=== PATIENT | female | born 1990 | race Caucasian/White ===

== ENCOUNTER 2016-06-05 01:59 | Emergency (ER) | payer OTHER ==
--- NOTE | 2016-06-05 03:30 | ED CLINICAL REPORT ---
Clinical Report - Physicians/Mid Levels [facility] [address] [place] [address] 06/05/2016 1:59 Patient: JOSÉ MIGUEL DE LEON Time Seen: 02:10. Arrived- By private vehicle. Historian- patient. HISTORY OF PRESENT ILLNESS Chief Complaint: CHEST PAIN. This started about 2 days ago and is still present. It was abrupt in onset and has been intermittent (episodes lasting seconds to hours). (She reports that after using meth 2 days ago, she felt anxious and had pressure in her chest. She says that she continues to fell anxious and "jittery."). REVIEW OF SYSTEMS No chills, fever, sweats, calf pain or pedal edema. No abdominal pain, constipation, diarrhea, nausea or vomiting. No urinary problems. She has had palpitations. All systems otherwise negative, except as recorded above. PAST HISTORY PCP - Vishal. Problems: Anxiety Reaction. Additional Surgeries: no known surgeries. Medications: None. Allergies: No Known Drug Allergy. SOCIAL HISTORY Current every day light tobacco smoker (cigarette)- less than 1/2 a pack per day. History of drug use: methamphetamines, marijuana. No alcohol use. Is a local resident. FAMILY HISTORY Diabetes in grandparent; heart disease in first-degree relative (mother). ADDITIONAL NOTES The nursing notes have been reviewed. PHYSICAL EXAM Vital Signs: 06/05/2016 02:02 BP: 110/61. HR: 71. RR: 15. O2 saturation: 95%. Temp: 97.4 F. Luna-Esparza pain scale: 2/10. Have been reviewed. Appearance: Alert. Eyes: Pupils equal, round and reactive to light. ENT: Pharynx normal. Neck: Neck supple. CVS: Normal heart rate and rhythm. Heart sounds normal. Respiratory: No respiratory distress. Breath sounds normal. Abdomen: No visible injury. Soft and nontender. Bowel sounds normal. No organomegaly. No mass. Back: Normal inspection. No CVA tenderness. Skin: Skin warm and dry. Normal skin color. Normal skin turgor. Extremities: Extremities exhibit normal ROM. No calf tenderness. No lower extremity edema. LABS, X-RAYS, AND EKG EKG: Normal EKG. Rate: 80. Prior EKG unavailable. The study has been independently viewed by me. Laboratory Tests: Urine: (JOHN: 06/05/2016 02:55) ( MsgRcvd 06/05/2016 03:06) Final results Test Result Flag Units (Reference) URINE POSITIVE Urine Drug Screen: (JOHN: 06/05/2016 02:55) ( MsgRcvd 06/05/2016 03:16) Final results Test Result Flag Units (Reference) AMPHETAMINE/METHAMPHETAMINE POSITIVE H (NEGATIVE) BARBITURATE NEGATIVE (NEGATIVE) BENZODIAZEPINE NEGATIVE (NEGATIVE) CANNABINOID POSITIVE H (NEGATIVE) COCAINE NEGATIVE (NEGATIVE) ECSTASY NEGATIVE (NEGATIVE) METHADONE NEGATIVE (NEGATIVE) OPIATE NEGATIVE (NEGATIVE) The urine drug screen is a qualitative screening test fordrug overdose and abuse. All screen results should beconsidered as presumptive.Drugs screened for are as follows:BenzodiazepinesCocaineAmphetamines/MetamphetaminesTHC (Tetrahydrocannabinol)OpiatesBarbituratesEcstasyMethadonePositive results are unconfirmed. For confirmation, notifythe lab for the specimen to be sent to the reference lab.All confirmations must be performed by a differentmethodology.The ingestion of natural herbal and plant productscontaining Ephedra/Ephedra metabolites can produce in urineone or more substances capable of cross reacting withamphetamine/methamphetamine immunoassays. These testsprovide a preliminary result only. A more specificalternative chemical method must be used to obtain aconfirmed analytical result. . PROGRESS AND PROCEDURES Course of Care: Patient is stable. Patient/family counseled. Old medical records ordered. Old records unavailable. Disposition: Discharged. Condition: stable. CLINICAL IMPRESSION . Substance abuse- marijuana, amphetamines and methamphetamines. INSTRUCTIONS (talk with your primary care doctor about seeking help for substance abuse as discussed.). Warnings: Further evaluation is necessary. GENERAL WARNINGS: Return or contact your physician immediately if your condition worsens or changes unexpectedly, if not improving as expected, or if other problems arise. Prescription Medications: vitamins: Take 1 orally every day. Dispense thirty (30). No refill. Follow-up: Follow up with your doctor JOSEE COBB tomorrow. Call for an appointment. Understanding of the discharge instructions verbalized by patient. Follow-up with: Gama Fraser MD, Obstetrics/Gynecology, , [facility], [address] [place] [address] Follow up in three days. Call for the next available appointment. (Electronically signed by Darryl Harley MD 06/05/2016 21:32)
--- NOTE | 2016-06-05 03:30 | ED ORDER SUMMARY ---
..... Patient: JOSÉ MIGUEL DE LEON OrderSheet [facility] VisitID: [id number] [address] [place] [address] 25y, F Registration Date/Time: 06/05/2016 ORDER SHEET Weight: 52.1 kg (estimated) Allergies: No Known Drug Allergy GENERAL ORDERS: Urine Urgent (02:11 06/05/2016 [facility] Bake Room Worker verbal order read back to Ash CARSON) (2:58 TBowwilmer R.N.) (Ack 2:58 [facility] Bake Room Worker) Urine Drug Screen Urgent (02:11 06/05/2016 [facility] Bake Room Worker verbal order read back to Ash CARSON) (Ack 2:58 [facility] Bake Room Worker) (2:58 TBowen R.N.) EKG - ER Stat (02:11 06/05/2016 [facility] Bake Room Worker verbal order read back to Ash CARSON) (2:25 CHategekimana) MEDICATION ORDERS: IV FLUIDS: ORDER SHEET NOTES: [Electronically signed by Sabrina Toure R.N. (03:46 06/05/2016)] [Electronically signed by Darryl Harley MD (21:32 06/05/2016)] [Electronically locked/signed by Sabrina Toure R.N. (03:46 06/05/2016)]
--- NOTE | 2016-06-05 03:30 | ED NURSING NOTES ---
Clinical Report - Nurses [facility] [address] [place] [address] 06/05/2016 1:59 Patient: JOSÉ MIGUEL DE LEON TRIAGE Triage time 02:02. Acuity: LEVEL 4. Chief Complaint: CHEST PAIN. Alert. --02: Selina Brink R.N. 02:02 06/05/16. BP: 110/61. HR: 71. RR: 15. O2 saturation: 95% on room air. Temp: 97.4 F (oral). Luna-Esparza pain scale: 2/10. --02: Selina Brink R.N. Weight: 52.1 kg estimated. Height/Length: 67 inches Per Patient. BMI: 18. --02: Selina Brink R.N. Medications None. --02: Selina Brink R.N. Allergies No Known Drug Allergy. --02: Selina Brink R.N. History Arrived by private vehicle. Historian: patient. ( pt reports having pain for 2 days. 3 days ago, pt reports 3 days ago she had episode of loosing vision and inability to walk. Family told her she was having a "panic attack" and refused to bring her in at that time.). Onset. (about 2 days ago). PAST MEDICAL HX: Immunizations: status is unknown. Last normal menstrual period was 3 weeks ago. Sexual history - sexually active. No contraception. SOCIAL HX: Heavy tobacco smoker (cigarette)- less than 1 pack per day. History of drug use: methamphetamines, marijuana. No alcohol use. NUTRITIONAL RISK ASSESSMENT: The nutritional risk assessment revealed no deficiencies. FUNCTIONAL ASSESSMENT: Functional assessment: no impairments noted. --02: Selina Brink R.N. PROBLEMS: Anxiety Reaction. --02:06 Selina Brink R.N. ADDITIONAL SURGERIES: no known surgeries. Interventions ID band on patient. To treatment room. --02: Selina Brink R.N. PHYSICAL ASSESSMENT Ambulatory to room. Patient gowned. GENERAL / NEURO / PSYCH: Alert. Oriented X 4. Appears in no acute distress. RESPIRATORY: Respirations not labored. CVS: Capillary refill less than 2 seconds. SKIN: Skin is warm and dry. --02:07 Selina Brink R.N. NURSING PROGRESS NOTES Head of bed elevated. Two patient identifiers checked. Call light placed in reach. Side rails up x 1. Bed placed in lowest position. Brakes of bed on. --02:07 Selina Brink R.N. Patient ready for evaluation- chart flagged. --02:07 Selina Brink R.N. EKG time: (217). EKG was ordered, performed by a tech and shown to the ED physician. --02:25 Peggy Pandey ( 9: electronic device monitor placed on patient.). --02:36 Peggy Pandey. DISPOSITION / DISCHARGE Departure time: 03:45. Condition at departure: improved. No learning barriers present. Discharge instructions provided and reviewed with the patient. Reviewed medication(s) side effects, precautions, dosing and course information. Prescription(s) given to the patient. Reviewed referrals. Reviewed need to stop smoking. Follow up contact number. Smash Fixer verbalized understanding. Written instructions provided in Kittitian. No warning instructions, diet instructions, activity restrictions or note given. The patient was discharged by the physician. She was discharged home and accompanied by financial aid director. She left the Emergency Department ambulatory and via private vehicle. Smash Fixer driving. FALL RISK ASSESSMENT: Fall risk assessment completed. No fall risk identified. --03:45 Deniz Mar 03:43 06/05/16. BP: 125/74. HR: 98. RR: 16. O2 saturation: 99%. Temp: deferred. Pain level now: 0/10. --03:45 Deniz Mar Locked/Released at 06/05/2016 3:46 by Deniz Mar
--- NOTE | 2016-06-05 03:30 | ED NURSING NOTES ---
Clinical Report - Nurses [facility] [address] [place] [address] 06/05/2016 1:59 Patient: JOSÉ MIGUEL DE LEON TRIAGE Triage time 02:02. Acuity: LEVEL 4. Chief Complaint: CHEST PAIN. Alert. --02: Selina Brink R.N. 02:02 06/05/16. BP: 110/61. HR: 71. RR: 15. O2 saturation: 95% on room air. Temp: 97.4 F (oral). Luna-Esparza pain scale: 2/10. --02: Selina Brink R.N. Weight: 52.1 kg estimated. Height/Length: 67 inches Per Patient. BMI: 18. --02: Selina Brink R.N. Medications None. --02: Selina Brink R.N. Allergies No Known Drug Allergy. --02: Selina Brink R.N. History Arrived by private vehicle. Historian: patient. ( pt reports having pain for 2 days. 3 days ago, pt reports 3 days ago she had episode of loosing vision and inability to walk. Family told her she was having a "panic attack" and refused to bring her in at that time.). Onset. (about 2 days ago). PAST MEDICAL HX: Immunizations: status is unknown. Last normal menstrual period was 3 weeks ago. Sexual history - sexually active. No contraception. SOCIAL HX: Heavy tobacco smoker (cigarette)- less than 1 pack per day. History of drug use: methamphetamines, marijuana. No alcohol use. NUTRITIONAL RISK ASSESSMENT: The nutritional risk assessment revealed no deficiencies. FUNCTIONAL ASSESSMENT: Functional assessment: no impairments noted. --02: Selina Brink R.N. PROBLEMS: Anxiety Reaction. --02:06 Selina Brink R.N. ADDITIONAL SURGERIES: no known surgeries. Interventions ID band on patient. To treatment room. --02: Selina Brink R.N. PHYSICAL ASSESSMENT Ambulatory to room. Patient gowned. GENERAL / NEURO / PSYCH: Alert. Oriented X 4. Appears in no acute distress. RESPIRATORY: Respirations not labored. CVS: Capillary refill less than 2 seconds. SKIN: Skin is warm and dry. --02:07 Selina Brink R.N. NURSING PROGRESS NOTES Head of bed elevated. Two patient identifiers checked. Call light placed in reach. Side rails up x 1. Bed placed in lowest position. Brakes of bed on. --02:07 Selina Brink R.N. Patient ready for evaluation- chart flagged. --02:07 Selina Brink R.N. EKG time: (217). EKG was ordered, performed by a tech and shown to the ED physician. --02:25 Peggy Pandey ( 9: bus monitor placed on patient.). --02:36 Peggy Pandey. DISPOSITION / DISCHARGE Departure time: 03:45. Condition at departure: improved. No learning barriers present. Discharge instructions provided and reviewed with the patient. Reviewed medication(s) side effects, precautions, dosing and course information. Prescription(s) given to the patient. Reviewed referrals. Reviewed need to stop smoking. Follow up contact number. Funeral Service Manager verbalized understanding. Written instructions provided in Russian. No warning instructions, diet instructions, activity restrictions or note given. The patient was discharged by the physician. She was discharged home and accompanied by system administrator. She left the Emergency Department ambulatory and via private vehicle. Funeral Service Manager driving. FALL RISK ASSESSMENT: Fall risk assessment completed. No fall risk identified. --03:45 Deniz Mar 03:43 06/05/16. BP: 125/74. HR: 98. RR: 16. O2 saturation: 99%. Temp: deferred. Pain level now: 0/10. --03:45 Deniz Mar Locked/Released at 06/05/2016 3:46 by Deniz Mar
--- NOTE | 2016-06-05 03:30 | ED CLINICAL REPORT ---
Clinical Report - Physicians/Mid Levels [facility] [address] [place] [address] 06/05/2016 1:59 Patient: JOSÉ MIGUEL DE LEON Time Seen: 02:10. Arrived- By private vehicle. Historian- patient. HISTORY OF PRESENT ILLNESS Chief Complaint: CHEST PAIN. This started about 2 days ago and is still present. It was abrupt in onset and has been intermittent (episodes lasting seconds to hours). (She reports that after using meth 2 days ago, she felt anxious and had pressure in her chest. She says that she continues to fell anxious and "jittery."). REVIEW OF SYSTEMS No chills, fever, sweats, calf pain or pedal edema. No abdominal pain, constipation, diarrhea, nausea or vomiting. No urinary problems. She has had palpitations. All systems otherwise negative, except as recorded above. PAST HISTORY PCP - Vishal. Problems: Anxiety Reaction. Additional Surgeries: no known surgeries. Medications: None. Allergies: No Known Drug Allergy. SOCIAL HISTORY Current every day light tobacco smoker (cigarette)- less than 1/2 a pack per day. History of drug use: methamphetamines, marijuana. No alcohol use. Is a local resident. FAMILY HISTORY Diabetes in grandparent; heart disease in first-degree relative (mother). ADDITIONAL NOTES The nursing notes have been reviewed. PHYSICAL EXAM Vital Signs: 06/05/2016 02:02 BP: 110/61. HR: 71. RR: 15. O2 saturation: 95%. Temp: 97.4 F. Luna-Esparza pain scale: 2/10. Have been reviewed. Appearance: Alert. Eyes: Pupils equal, round and reactive to light. ENT: Pharynx normal. Neck: Neck supple. CVS: Normal heart rate and rhythm. Heart sounds normal. Respiratory: No respiratory distress. Breath sounds normal. Abdomen: No visible injury. Soft and nontender. Bowel sounds normal. No organomegaly. No mass. Back: Normal inspection. No CVA tenderness. Skin: Skin warm and dry. Normal skin color. Normal skin turgor. Extremities: Extremities exhibit normal ROM. No calf tenderness. No lower extremity edema. LABS, X-RAYS, AND EKG EKG: Normal EKG. Rate: 80. Prior EKG unavailable. The study has been independently viewed by me. Laboratory Tests: Urine: (JOHN: 06/05/2016 02:55) ( MsgRcvd 06/05/2016 03:06) Final results Test Result Flag Units (Reference) URINE POSITIVE Urine Drug Screen: (JOHN: 06/05/2016 02:55) ( MsgRcvd 06/05/2016 03:16) Final results Test Result Flag Units (Reference) AMPHETAMINE/METHAMPHETAMINE POSITIVE H (NEGATIVE) BARBITURATE NEGATIVE (NEGATIVE) BENZODIAZEPINE NEGATIVE (NEGATIVE) CANNABINOID POSITIVE H (NEGATIVE) COCAINE NEGATIVE (NEGATIVE) ECSTASY NEGATIVE (NEGATIVE) METHADONE NEGATIVE (NEGATIVE) OPIATE NEGATIVE (NEGATIVE) The urine drug screen is a qualitative screening test fordrug overdose and abuse. All screen results should beconsidered as presumptive.Drugs screened for are as follows:BenzodiazepinesCocaineAmphetamines/MetamphetaminesTHC (Tetrahydrocannabinol)OpiatesBarbituratesEcstasyMethadonePositive results are unconfirmed. For confirmation, notifythe lab for the specimen to be sent to the reference lab.All confirmations must be performed by a differentmethodology.The ingestion of natural herbal and plant productscontaining Ephedra/Ephedra metabolites can produce in urineone or more substances capable of cross reacting withamphetamine/methamphetamine immunoassays. These testsprovide a preliminary result only. A more specificalternative chemical method must be used to obtain aconfirmed analytical result. . PROGRESS AND PROCEDURES Course of Care: Patient is stable. Patient/family counseled. Old medical records ordered. Old records unavailable. Disposition: Discharged. Condition: stable. CLINICAL IMPRESSION . Substance abuse- marijuana, amphetamines and methamphetamines. INSTRUCTIONS (talk with your primary care doctor about seeking help for substance abuse as discussed.). Warnings: Further evaluation is necessary. GENERAL WARNINGS: Return or contact your physician immediately if your condition worsens or changes unexpectedly, if not improving as expected, or if other problems arise. Prescription Medications: vitamins: Take 1 orally every day. Dispense thirty (30). No refill. Follow-up: Follow up with your doctor JOSEE COBB tomorrow. Call for an appointment. Understanding of the discharge instructions verbalized by patient. Follow-up with: Gama Fraser MD, Obstetrics/Gynecology, , [facility], [address] [place] [address] Follow up in three days. Call for the next available appointment. (Electronically signed by Darryl Harley MD 06/05/2016 21:32)
--- NOTE | 2016-06-05 03:30 | ED ORDER SUMMARY ---
..... Patient: JOSÉ MIGUEL DE LEON OrderSheet [facility] VisitID: [id number] [address] [place] [address] 25y, F Registration Date/Time: 06/05/2016 ORDER SHEET Weight: 52.1 kg (estimated) Allergies: No Known Drug Allergy GENERAL ORDERS: Urine Urgent (02:11 06/05/2016 [facility] Prototype Deicer Assembler verbal order read back to Ash CARSON) (2:58 TBowwilmer R.N.) (Ack 2:58 [facility] Prototype Deicer Assembler) Urine Drug Screen Urgent (02:11 06/05/2016 [facility] Prototype Deicer Assembler verbal order read back to Ash CARSON) (Ack 2:58 [facility] Prototype Deicer Assembler) (2:58 TBowen R.N.) EKG - ER Stat (02:11 06/05/2016 [facility] Prototype Deicer Assembler verbal order read back to Ash CARSON) (2:25 CHategekimana) MEDICATION ORDERS: IV FLUIDS: ORDER SHEET NOTES: [Electronically signed by Sabrina Toure R.N. (03:46 06/05/2016)] [Electronically signed by Darryl Harley MD (21:32 06/05/2016)] [Electronically locked/signed by Sabrina Toure R.N. (03:46 06/05/2016)]
--- NOTE | 2016-06-05 21:32 | ED DISCHARGE INSTRUCTIONS ---
Patient: JOSÉ MIGUEL DE LEON General Instructions [facility] VisitID: [id number] [place] [address] 25y, F Registration Date/Time: 06/05/2016 . Substance abuse- marijuana, amphetamines and methamphetamines. INSTRUCTIONS (talk with your primary care doctor about seeking help for substance abuse as discussed.). Warnings: Further evaluation is necessary. GENERAL WARNINGS: Return or contact your physician immediately if your condition worsens or changes unexpectedly, if not improving as expected, or if other problems arise. Prescription Medications: vitamins: Take 1 orally every day. Dispense thirty (30). No refill. Follow-up: Follow up with your doctor JOSEE COBB tomorrow. Call for an appointment. Understanding of the discharge instructions verbalized by patient. Follow-up with: Gama Fraser MD, Obstetrics/Gynecology, , [facility], [address] [place] [address] Follow up in three days. Call for the next available appointment. ADDITIONAL INFORMATION Your exam today shows that you are . During , it is normal to develop tender swollen breasts, frequent urination and mild vaginal discharge. During the first three months, nausea is common. Guidelines For A Healthy : To ensure that your baby is born healthy there are certain things that you can do: When you feel tired, you should REST. This is especially true in the later months of . Your body needs more FLUIDS than you may be used to: You should drink 8-10 glasses of juice, milk or water. Eat well-balanced MEALS at regular intervals to supply your body with enough protein. You can expect a total weight gain of about 30 pounds during the . Do not try to diet or lose weight while you are . Because of the extra nutritional needs during , take one VITAMIN daily. Do not take any other MEDICINE during your (prescribed or jbcd-[id number]-[id number]) unless your doctor specifically recommends this. Many drugs can have harmful effects on the growing baby. If NAUSEA or VOMITING become a problem, avoid greasy and fried foods. Eat several smaller meals throughout the day rather than three large meals. If you SMOKE, you must stop. The nicotine you breathe in goes right to the baby. Stay away from ALCOHOL, even in moderate amounts. Daily drinking will harm your baby and can cause permanent brain damage. RECREATIONAL DRUGS are harmful, especially cocaine, crack, and heroin. Marijuana should also be avoided. If you were using recreational drugs or prescribed medicine when you found out that you were , talk to your doctor about possible effects on the fetus. Follow Up: Call to arrange for care. This can be provided by your family doctor, an national business director ( specialist) or a primary care clinic. Get Prompt Medical Attention if any of the following occur: Vaginal bleeding Moderate or severe abdominal or back pain Excessive vomiting, unable to keep any fluids down for six hours Burning with urination Headache, dizziness or rapid weight gain Your exam today shows that you are . During , it is normal to develop tender swollen breasts, frequent urination and mild vaginal discharge. During the first three months, nausea is common. Guidelines For A Healthy : To ensure that your baby is born healthy there are certain things that you can do: When you feel tired, you should REST. This is especially true in the later months of . Your body needs more FLUIDS than you may be used to: You should drink 8-10 glasses of juice, milk or water. Eat well-balanced MEALS at regular intervals to supply your body with enough protein. You can expect a total weight gain of about 30 pounds during the . Do not try to diet or lose weight while you are . Because of the extra nutritional needs during , take one VITAMIN daily. Do not take any other MEDICINE during your (prescribed or iluv-ylv-riecjid) unless your doctor specifically recommends this. Many drugs can have harmful effects on the growing baby. If NAUSEA or VOMITING become a problem, avoid greasy and fried foods. Eat several smaller meals throughout the day rather than three large meals. If you SMOKE, you must stop. The nicotine you breathe in goes right to the baby. Stay away from ALCOHOL, even in moderate amounts. Daily drinking will harm your baby and can cause permanent brain damage. RECREATIONAL DRUGS are harmful, especially cocaine, crack, and heroin. Marijuana should also be avoided. If you were using recreational drugs or prescribed medicine when you found out that you were , talk to your doctor about possible effects on the fetus. Follow Up: Call to arrange for care. This can be provided by your family doctor, an national business director ( specialist) or a primary care clinic. Get Prompt Medical Attention if any of the following occur: Vaginal bleeding Moderate or severe abdominal or back pain Excessive vomiting, unable to keep any fluids down for six hours Burning with urination Headache, dizziness or rapid weight gain Drug Abuse Use and abuse of such drugs as marijuana, amphetamines (speed, crank), cocaine, heroin or prescription pain medicines (Vicodin, codeine), sedatives and sleeping pills (Valium, Klonopin), PCP, mescaline and LSD may lead to addiction or dependence. Once this occurs, you are at greater risk for any of the following: Craving for the drug and unable to stop using the drug even though you think you want to stop (psychological dependence) Drug withdrawal symptoms if you stop taking the drug (physical dependence) Loss of your job or your family Arrest, conviction and senior living sentence for possession of an illegal substance or for driving under the influence of such a substance Accidental injuries to yourself or others while you are under the influence of the drug (in a car or at home). HIV infection (much greater risk if you use IV drugs) Other sexually transmitted diseases (herpes, chlamydia, gonorrhea and others) Severe and fatal infection of the heart valves (if you use IV drugs) Stroke, heart attack, hepatitis B or C, kidney failure from overdose Home Care: Admit you have a drug problem. Ask for help from your family and close friends. Seek professional help. This could be in the form of individual psychotherapy or counseling or an outpatient, inpatient, or residential drug treatment program. Join a self-help group for drug abuse. Avoid friends who abuse drugs themselves or tempt you to continue abusing drugs. Eat a balanced diet and begin a regular exercise program. Follow Up with your doctor or as advised by our staff. Contact one of the resources below for help. National [place] on Alcoholism and Drug Dependence www.ncadd.org 168-661-JWEP Narcotics Anonymous www.na.org 142-583-5119 National Alcohol and Substance Abuse Information Center (for referral to treatment programs) www.[employer] 149-332-0502 Get Prompt Medical Attention if any of the following occur: Agitation, anxiety, unable to sleep Unintended weight loss (more than 10 to 15 pounds over 3 months) Seizure Chest pain Fever of 100.4F (38C) or higher, or as directed by your healthcare provider Excess drowsiness or inability to be awakened Shortness of breath Slow breathing under 8 breaths per minute Cough with colored sputum Redness, swelling or tenderness at an injection site You have been given the following additional information: , New Dx , New Dx Drug Abuse (Electronically signed by Darryl Harley MD 06/05/2016 21:32)
--- NOTE | 2016-06-05 21:32 | ED MAR SUMMARY ---
..... Medication Administration Record [facility] [address] [place], [place] [id number] Patient: JOSÉ MIGUEL DE LEON Visit ID: [id number] 25y, F Weight: 52.1 kg Height/Length: 67 in BMI: 18 ALLERGIES: No Known Drug Allergy
--- NOTE | 2016-06-05 21:32 | ED MED RECONCILIATION SUMMARY ---
Patient: JOSÉ MIGUEL DE LEON Medication Reconciliation Report [facility] VisitID: [id number] [address] [place] [address] 25y, F Registration Date/Time: 06/05/2016 Weight: 52.1 kg Height/Length: 67 in. BMI: 18.0 ALLERGIES: No Known Drug Allergy The patient's Home Medications are listed below: NONE. The source(s) of the original Home Medication information: Not obtained. The following Medications were given to the patient in the Emergency Department: None. The following Medications were prescribed to the patient: vitamins: Take 1 orally every day. Dispense thirty (30). No refill. -- Darryl Harley MD
--- NOTE | 2016-06-05 21:32 | ED MAR SUMMARY ---
..... Medication Administration Record [facility] [address] [place], [place] [id number] Patient: JOSÉ MIGUEL DE LEON Visit ID: [id number] 25y, F Weight: 52.1 kg Height/Length: 67 in BMI: 18 ALLERGIES: No Known Drug Allergy
--- NOTE | 2016-06-05 21:32 | ED DISCHARGE INSTRUCTIONS ---
Patient: JOSÉ MIGUEL DE LEON General Instructions [facility] VisitID: [id number] [place] [address] 25y, F Registration Date/Time: 06/05/2016 . Substance abuse- marijuana, amphetamines and methamphetamines. INSTRUCTIONS (talk with your primary care doctor about seeking help for substance abuse as discussed.). Warnings: Further evaluation is necessary. GENERAL WARNINGS: Return or contact your physician immediately if your condition worsens or changes unexpectedly, if not improving as expected, or if other problems arise. Prescription Medications: vitamins: Take 1 orally every day. Dispense thirty (30). No refill. Follow-up: Follow up with your doctor JOSEE COBB tomorrow. Call for an appointment. Understanding of the discharge instructions verbalized by patient. Follow-up with: Gama Fraser MD, Obstetrics/Gynecology, , [facility], [address] [place] [address] Follow up in three days. Call for the next available appointment. ADDITIONAL INFORMATION Your exam today shows that you are . During , it is normal to develop tender swollen breasts, frequent urination and mild vaginal discharge. During the first three months, nausea is common. Guidelines For A Healthy : To ensure that your baby is born healthy there are certain things that you can do: When you feel tired, you should REST. This is especially true in the later months of . Your body needs more FLUIDS than you may be used to: You should drink 8-10 glasses of juice, milk or water. Eat well-balanced MEALS at regular intervals to supply your body with enough protein. You can expect a total weight gain of about 30 pounds during the . Do not try to diet or lose weight while you are . Because of the extra nutritional needs during , take one VITAMIN daily. Do not take any other MEDICINE during your (prescribed or [id number]-btl-obsnzra) unless your doctor specifically recommends this. Many drugs can have harmful effects on the growing baby. If NAUSEA or VOMITING become a problem, avoid greasy and fried foods. Eat several smaller meals throughout the day rather than three large meals. If you SMOKE, you must stop. The nicotine you breathe in goes right to the baby. Stay away from ALCOHOL, even in moderate amounts. Daily drinking will harm your baby and can cause permanent brain damage. RECREATIONAL DRUGS are harmful, especially cocaine, crack, and heroin. Marijuana should also be avoided. If you were using recreational drugs or prescribed medicine when you found out that you were , talk to your doctor about possible effects on the fetus. Follow Up: Call to arrange for care. This can be provided by your family doctor, an riveting machine operator ( specialist) or a primary care clinic. Get Prompt Medical Attention if any of the following occur: Vaginal bleeding Moderate or severe abdominal or back pain Excessive vomiting, unable to keep any fluids down for six hours Burning with urination Headache, dizziness or rapid weight gain Your exam today shows that you are . During , it is normal to develop tender swollen breasts, frequent urination and mild vaginal discharge. During the first three months, nausea is common. Guidelines For A Healthy : To ensure that your baby is born healthy there are certain things that you can do: When you feel tired, you should REST. This is especially true in the later months of . Your body needs more FLUIDS than you may be used to: You should drink 8-10 glasses of juice, milk or water. Eat well-balanced MEALS at regular intervals to supply your body with enough protein. You can expect a total weight gain of about 30 pounds during the . Do not try to diet or lose weight while you are . Because of the extra nutritional needs during , take one VITAMIN daily. Do not take any other MEDICINE during your (prescribed or wvqg-zfl-nldllqe) unless your doctor specifically recommends this. Many drugs can have harmful effects on the growing baby. If NAUSEA or VOMITING become a problem, avoid greasy and fried foods. Eat several smaller meals throughout the day rather than three large meals. If you SMOKE, you must stop. The nicotine you breathe in goes right to the baby. Stay away from ALCOHOL, even in moderate amounts. Daily drinking will harm your baby and can cause permanent brain damage. RECREATIONAL DRUGS are harmful, especially cocaine, crack, and heroin. Marijuana should also be avoided. If you were using recreational drugs or prescribed medicine when you found out that you were , talk to your doctor about possible effects on the fetus. Follow Up: Call to arrange for care. This can be provided by your family doctor, an riveting machine operator ( specialist) or a primary care clinic. Get Prompt Medical Attention if any of the following occur: Vaginal bleeding Moderate or severe abdominal or back pain Excessive vomiting, unable to keep any fluids down for six hours Burning with urination Headache, dizziness or rapid weight gain Drug Abuse Use and abuse of such drugs as marijuana, amphetamines (speed, crank), cocaine, heroin or prescription pain medicines (Vicodin, codeine), sedatives and sleeping pills (Valium, Klonopin), PCP, mescaline and LSD may lead to addiction or dependence. Once this occurs, you are at greater risk for any of the following: Craving for the drug and unable to stop using the drug even though you think you want to stop (psychological dependence) Drug withdrawal symptoms if you stop taking the drug (physical dependence) Loss of your job or your family Arrest, conviction and longterm sentence for possession of an illegal substance or for driving under the influence of such a substance Accidental injuries to yourself or others while you are under the influence of the drug (in a car or at home). HIV infection (much greater risk if you use IV drugs) Other sexually transmitted diseases (herpes, chlamydia, gonorrhea and others) Severe and fatal infection of the heart valves (if you use IV drugs) Stroke, heart attack, hepatitis B or C, kidney failure from overdose Home Care: Admit you have a drug problem. Ask for help from your family and close friends. Seek professional help. This could be in the form of individual psychotherapy or counseling or an outpatient, inpatient, or residential drug treatment program. Join a self-help group for drug abuse. Avoid friends who abuse drugs themselves or tempt you to continue abusing drugs. Eat a balanced diet and begin a regular exercise program. Follow Up with your doctor or as advised by our staff. Contact one of the resources below for help. National [place] on Alcoholism and Drug Dependence www.ncadd.org 559-458-MMNP Narcotics Anonymous www.na.org 513-913-7775 National Alcohol and Substance Abuse Information Center (for referral to treatment programs) www.[employer] 943-231-8006 Get Prompt Medical Attention if any of the following occur: Agitation, anxiety, unable to sleep Unintended weight loss (more than 10 to 15 pounds over 3 months) Seizure Chest pain Fever of 100.4F (38C) or higher, or as directed by your healthcare provider Excess drowsiness or inability to be awakened Shortness of breath Slow breathing under 8 breaths per minute Cough with colored sputum Redness, swelling or tenderness at an injection site You have been given the following additional information: , New Dx , New Dx Drug Abuse (Electronically signed by Darryl Harley MD 06/05/2016 21:32)
--- NOTE | 2016-06-05 21:32 | ED MED RECONCILIATION SUMMARY ---
Patient: JOSÉ MIGUEL DE LEON Medication Reconciliation Report [facility] VisitID: [id number] [address] [place] [address] 25y, F Registration Date/Time: 06/05/2016 Weight: 52.1 kg Height/Length: 67 in. BMI: 18.0 ALLERGIES: No Known Drug Allergy The patient's Home Medications are listed below: NONE. The source(s) of the original Home Medication information: Not obtained. The following Medications were given to the patient in the Emergency Department: None. The following Medications were prescribed to the patient: vitamins: Take 1 orally every day. Dispense thirty (30). No refill. -- Darryl Harley MD
== END 2016-06-05 03:46 | disposition home or self-care (01) ==
LOC: ED SRH 01:59
DX: O99.320 Drug use complicating pregnancy, unspecified trimester (principal); F15.10 Other stimulant abuse, uncomplicated; F12.10 Cannabis abuse, uncomplicated; F17.210 Nicotine dependence, cigarettes, uncomplicated
CPT/HCPCS: 92760; 92761; 92762; 92763; 92764; 92765; 92766; 92767; 93070

== ENCOUNTER → 2016-07-08 | Emergency (ER) | payer OTHER ==
--- NOTE | 2016-07-09 00:36 | ED NURSING NOTES ---
Clinical Report - Nurses [facility] [address] [place] [place] [address] 07/08/2016 23:10 Patient: JOSÉ MIGUEL DE LEON TRIAGE History ( no answer in waiting room, Registration states pt left.). --00:35 Selina Brink R.N. DISPOSITION / DISCHARGE The patient left the Emergency Department before triage. She notified the ED staff prior to leaving the department. She left the Emergency Department ambulatory. --00:35 Selina Brink R.N. Locked/Released at 07/09/2016 4:50 by Selina Brink R.N.
--- NOTE | 2016-07-09 00:36 | ED NURSING NOTES ---
Clinical Report - Nurses [facility] [address] [place] [place] [address] 07/08/2016 23:10 Patient: JOSÉ MIGUEL DE LEON TRIAGE History ( no answer in waiting room, Registration states pt left.). --00:35 Selina Brink R.N. DISPOSITION / DISCHARGE The patient left the Emergency Department before triage. She notified the ED staff prior to leaving the department. She left the Emergency Department ambulatory. --00:35 Selina Brink R.N. Locked/Released at 07/09/2016 4:50 by Selina Brink R.N.
--- NOTE | 2016-07-09 04:50 | ED MAR SUMMARY ---
..... Medication Administration Record [facility] [address] [place], [place] [id number] Patient: JOSÉ MIGUEL DE LEON Visit ID: [id number] 26y, F Weight: (not available) Height/Length: (not available) BMI: (not available) ALLERGIES:
--- NOTE | 2016-07-09 04:50 | ED MED RECONCILIATION SUMMARY ---
Patient: JOSÉ MIGUEL DE LEON Medication Reconciliation Report [facility] VisitID: [id number] [address] [place] [place] [address] 26y, F Registration Date/Time: 07/08/2016 Weight: (not available) Height/Length: (not available) BMI: (not available) ALLERGIES: The patient's Home Medications are listed below: Not obtained. The source(s) of the original Home Medication information: Not obtained. The following Medications were given to the patient in the Emergency Department: None. The following Medications were prescribed to the patient: None.
--- NOTE | 2016-07-09 04:50 | ED MAR SUMMARY ---
..... Medication Administration Record [facility] [address] [place], [place] [id number] Patient: JOSÉ MIGUEL DE LEON Visit ID: [id number] 26y, F Weight: (not available) Height/Length: (not available) BMI: (not available) ALLERGIES:
--- NOTE | 2016-07-09 04:50 | ED MED RECONCILIATION SUMMARY ---
Patient: JOS ÉMIGUEL DE LEON Medication Reconciliation Report [facility] VisitID: [id number] [address] [place] [address] 26y, F Registration Date/Time: 07/08/2016 Weight: (not available) Height/Length: (not available) BMI: (not available) ALLERGIES: The patient's Home Medications are listed below: Not obtained. The source(s) of the original Home Medication information: Not obtained. The following Medications were given to the patient in the Emergency Department: None. The following Medications were prescribed to the patient: None.
== END ==
LOC: ED SRH 23:10
DX: Z53.21 Procedure and treatment not carried out due to patient leaving prior to being seen by health care provider (principal)

== ENCOUNTER 2016-08-01 00:33 | Emergency (ER) | payer OTHER ==
--- NOTE | 2016-08-01 02:13 | ED CLINICAL REPORT ---
Clinical Report - Physicians/Mid Levels [facility] [address] [place] [address] 08/01/2016 0:33 Patient: JOSÉ MIGUEL DE LEON Time Seen: 00:41; initial patient contact. Arrived- By private vehicle. Historian- patient. HISTORY OF PRESENT ILLNESS Chief Complaint: CHEST DISCOMFORT. It is described as pressure and it is described as located in the central chest area. No radiation. This started about 4 days ago and is still present. It was gradual in onset and has been constant. The patient cannot recall the circumstances at the onset. At its maximum, severity described as mild. When seen in the E.D., severity described as mild. Modifying factors. Not worsened by anything. Not relieved by anything. The patient has had difficulty breathing and nausea. No vomiting or diaphoresis. Similar symptoms previously: Many times. Recent medical care: Not recently seen/assessed. REVIEW OF SYSTEMS No fever, chills, cough, pedal edema or calf pain. No fainting episodes or abdominal pain. All systems otherwise negative, except as recorded above. PAST HISTORY Anxiety Substance abuse. Surgeries: No history of previous surgery. SOCIAL HISTORY Current every day smoker. History of drug use: methamphetamines, marijuana. No alcohol use. ADDITIONAL NOTES The nursing notes have been reviewed. PHYSICAL EXAM Vital Signs: 08/01/2016 00:40 BP: 118/70. HR: 84. RR: 18. O2 saturation: 100%. Temp: 98.2 F. Pain level now: 0/10. Have been reviewed as normal. Appearance: Alert. Oriented X3. No acute distress. Eyes: Eyes normal inspection. ENT: Pharynx normal. The mucous membranes are not dry. Neck: Normal inspection. No JVD. CVS: Normal heart rate and rhythm. Heart sounds normal. Respiratory: No respiratory distress. Breath sounds normal. Chest nontender. Abdomen: Soft and nontender. Bowel sounds normal. Skin: Skin warm and dry. Normal skin color. Extremities: No calf tenderness. No lower extremity edema. Neuro: Oriented X 3. LABS, X-RAYS, AND EKG EKG: EKG time: (0121). No acute process. No acute ischemia. Normal sinus rhythm. Rate: 75. Normal P waves. Normal CHLOE. Normal QRS complex. Normal axis. Right axis deviation (axis = 90). Normal ST and T waves, QT and QTc. Prior EKG unavailable. The study has been interpreted contemporaneously by me. The study has been independently viewed by me. The EKG appears to be a good tracing. I agree with and confirm the computer reading of the EKG. Interpretation time: 0121. Chest X-ray: No acute disease. No infiltrate. (? R lung granulomas). Views: AP. Technique: good. The X-rays were independently viewed by me and interpreted contemporaneously by me. Prior films were not available for comparison. Interpretation time: 01:15. Laboratory Tests: CBC w Diff: (JOHN: 08/01/2016 01:15) ( MsgRcvd 08/01/2016 01:37) Final results Test Result Flag Units (Reference) WHITE BLOOD COUNT 5.4 K/uL (4.5-11.5) RED BLOOD COUNT 4.47 M/uL (4.00-5.20) HEMOGLOBIN 14.7 gm/dL (12.0-16.0) HEMATOCRIT 43.8 % (36.0-46.0) MEAN CELL VOLUME 98 fL (80-100) MEAN CORPUSCULAR HGB 33 pg (26-34) MEAN CORPUSCULAR HGB CONC 34 g/dL (31-37) RED CELL DISTRIBUTION WIDTH 12.8 % (11.6-14.8) PLATELET COUNT 224 K/uL (150-400) NEUTROPHIL % 59.1 % (50-75) LYMPH % 30.8 % (25-40) MONO % 6.0 % (3-14) EOSINOPHIL % 3.2 % (0-4) BASOPHIL % 0.9 % (0-2) CHEM 13 PANEL: (JOHN: 08/01/2016 01:15) ( MsgRcvd 08/01/2016 01:48) Final results Test Result Flag Units (Reference) GLUCOSE 94 mg/dL (70-110) BUN 11 mg/dL (7-18) CREATININE 0.7 mg/dL (0.6-1.3) Estimated GFR >60 mL/min Estimated GFR- >60 mL/min Note: Persistent reduction over 3 months in eGFR<60 mL/min/1.73 m2 defines CKD. Patients with eGFR values>=60 mL/min/1.73 m2 may also have CKD if evidence ofpersistent proteinuria. Additional information may be foundat www.kidney.org. SODIUM 142 mmol/L (136-145) POTASSIUM 3.7 mmol/L (3.5-5.1) CHLORIDE 104 mmol/L (98-107) CARBON DIOXIDE 28 mmol/L (21-32) CALCIUM 9.0 mg/dL (8.5-10.1) TOTAL PROTEIN 7.7 g/dL (6.4-8.2) ALBUMIN 4.3 g/dL (3.3-5.0) BILIRUBIN, TOTAL 0.4 mg/dL (0.0-1.0) ALKALINE PHOSPHATASE 77 U/L (46-116) AST (SGOT) 13 L U/L (15-37) ALT (SGPT) 20 U/L (12-78) MAGNESIUM 2.0 mg/dL (1.8-2.4) CPK 57 U/L (24-260) TROPONIN I <0.05 L ng/mL (0.00-1.5) TROPONIN REFERENCE RANGE:<0.1 NEGATIVE0.1-1.5 INDETERMINANT>1.5 POSITIVE . PROGRESS AND PROCEDURES Course of Care: 02:13 08/01/16. Updated pt on normal labs, she stated " just what I thought, my anxiety". Disposition: Discharged home in good condition. Condition: good. CLINICAL IMPRESSION Atypical chest pain .12 lead EKG performed. Anxiety reaction. INSTRUCTIONS Avoid stimulants (such as cigarettes, coffee, cold medicines, sinus medicines, street drugs). Prescription Medications: Vistaril 50 mg: take 1 orally every 6 hours as needed for anxiety. Dispense twenty (20). No refill. Substitution is permissible. Follow-up: Follow up with your doctor in about two days. Call for an appointment. Screening today revealed the patient's blood pressure to be in the normal range. (Electronically signed by Too Engle Dr. 08/01/2016 2:15)
--- NOTE | 2016-08-01 02:14 | ED ORDER SUMMARY ---
..... Patient: JOSÉ MIGUEL DE LEON OrderSheet [facility] VisitID: [id number] [place] [address] 26y, F Registration Date/Time: 08/01/2016 ORDER SHEET Weight: 54.4 kg (stated) Allergies: No Known Drug Allergy GENERAL ORDERS: Chest 1V Urgent (00:53 08/01/2016 Laverne Ashby) (1:11 Coletteger) Cardiac Panel Stat (00:54 08/01/2016 Lavenre Ashby) (Ack 1:32 Makenna) UA-Culture if indicated Urgent (00:54 08/01/2016 Laverne Ashby) (Ack 1:32 Makenna) (Cancelled: Physician Order2:12 Laverne Ashby) Urine Urgent (00:54 08/01/2016 Laverne Ashby) (Ack 1:32 Makenna) (Cancelled: Physician Order2:12 Laverne Ashby) Urine Drug Screen Urgent (00:54 08/01/2016 Laverne Ashby) (Ack 1:32 Makenna) (Cancelled: Physician Order2:13 Laverne Ashby) EKG - ER Stat (01:07 08/01/2016 Laverne Ashby) (1:32 Chuyitaimanato) MEDICATION ORDERS: IV FLUIDS: Zofran IV 4 mg (NOW) (00:54 08/01/2016 Laverne Ashby) IV Saline Lock (00:54 08/01/2016 Laverne Ashby) (1:21 Shaggy R.NJamal) ORDER SHEET NOTES: [Electronically signed by Too Engle Dr. (02:15 08/01/2016)] [Electronically signed by Sheriff Deniz Diaz (02:08/01/2016)] [Electronically locked/signed by Sheriff Deniz Diaz (02:08/01/2016)]
--- NOTE | 2016-08-01 02:14 | ED ORDER SUMMARY ---
..... Patient: JOSÉ MIGUEL DE LEON OrderSheet [facility] VisitID: [id number] [place] [address] 26y, F Registration Date/Time: 08/01/2016 ORDER SHEET Weight: 54.4 kg (stated) Allergies: No Known Drug Allergy GENERAL ORDERS: Chest 1V Urgent (00:53 08/01/2016 Laverne Ashby) (1:11 Coletteger) Cardiac Panel Stat (00:54 08/01/2016 Laverne Ashby) (Ack 1:32 Makenna) UA-Culture if indicated Urgent (00:54 08/01/2016 Laverne Ashby) (Ack 1:32 Makenna) (Cancelled: Physician Order2:12 Laverne Ashby) Urine Urgent (00:54 08/01/2016 Laverne Ashby) (Ack 1:32 Makenna) (Cancelled: Physician Order2:12 Laverne Ashby) Urine Drug Screen Urgent (00:54 08/01/2016 Laverne Ashby) (Ack 1:32 Makenna) (Cancelled: Physician Order2:13 Laverne Ashby) EKG - ER Stat (01:07 08/01/2016 Laverne Ashby) (1:32 Chuyitaimanato) MEDICATION ORDERS: IV FLUIDS: Zofran IV 4 mg (NOW) (00:54 08/01/2016 Laverne Ashby) IV Saline Lock (00:54 08/01/2016 Laverne Ashby) (1:21 Shaggy R.NJamal) ORDER SHEET NOTES: [Electronically signed by Too Engle Dr. (02:15 08/01/2016)] [Electronically signed by Sheriff Deniz Diaz (02:08/01/2016)] [Electronically locked/signed by Sheriff Deniz Diaz (02:08/01/2016)]
--- NOTE | 2016-08-01 02:14 | ED NURSING NOTES ---
Clinical Report - Nurses [facility] [place] [address] 08/01/2016 0:33 Patient: JOSÉ MIGUEL DE LEON TRIAGE Triage time 00:40. Chief Complaint: FATIGUE, NUMBNESS and VOMITING. --00:47 Sheriff Diaz R.N. 00:40 08/01/16. BP: 118/70. HR: 84. RR: 18. O2 saturation: 100%. Temp: 98.2 F. Pain level now: 010. --00:47 Sheriff Diaz R.N. Weight: 54.4 kg stated. Height/Length: 67 inches Per Patient. BMI: 18.8. --00:44 Sheriff Diaz R.N. Medications None. --00:43 Sheriff Diaz R.N. Allergies No Known Drug Allergy. --00:43 Sheriff Diaz R.N. History Arrived by private vehicle. Historian: patient. Onset. (4 days ago). ( Feeling different. "It feels like my heart is inflamed."). PAST MEDICAL HX: Immunizations: status is unknown. SURGERY HX: No history of previous surgery. SOCIAL HX: Smoker- current status unknown (5-10 cigarettes daily.). History of drug use. (Marijuana). No alcohol use. FALL RISK ASSESSMENT: Fall risk assessment completed. No fall risk identified. NUTRITIONAL RISK ASSESSMENT: The nutritional risk assessment revealed no deficiencies. FUNCTIONAL ASSESSMENT: Functional assessment: no impairments noted. LEARNING NEEDS ASSESSMENT: The learning needs assessment revealed no barriers. SKIN INTEGRITY ASSESSMENT: Skin integrity risk assessment completed. No skin integrity risk identified. --00:47 Sheriff Diaz R.N. SOCIAL HX: History of drug use: methamphetamines. --00:48 Sheriff Diaz R.N. PROBLEMS: Substance Abuse. . Anxiety Reaction. --00:43 Sheriff Diaz R.N. ADDITIONAL SURGERIES: no known surgeries. PHYSICAL ASSESSMENT Ambulatory to room. GENERAL / NEURO / PSYCH: Alert. Oriented X 4. Appears in no acute distress. HEENT: No facial asymmetry noted. Mucous membranes are pink. RESPIRATORY: Respirations not labored. Breath sounds within normal limits. CVS: Capillary refill less than 2 seconds. Pulses within normal limits. GI / : Abdomen soft. SKIN: Skin intact. Skin is warm and dry. Normal skin turgor. --00:48 Sheriff Diaz R.N. NURSING PROGRESS NOTES Patient gowned. Head of bed elevated. Two patient identifiers checked. Call light placed in reach. Side rails up x 2. Bed placed in lowest position. Brakes of bed on. --00:48 Sheriff Diaz R.N. 01:21 08/01/2016 Site #1 started via IV in the right antecubital space with an 20g angiocath, with aseptic technique and good blood return; one attempt. Blood drawn: rainbow set. Labeled in the presence of the patient and sent to the lab. Saline lock flushed with 10 mL saline. --01:21 Sheriff Diaz R.N. ( Refused Zofrvicente IV, aware.). --01:21 Sheriff Diaz R.N. EKG time: (0121 AM). EKG was ordered, performed by a tech and shown to the ED physician. --01:40 Peggy Pandey 02:22 08/01/2016 Site #1 removed upon discharge. Catheter intact. Bandaid applied. --02:22 Sheriff Diaz R.N. DISPOSITION / DISCHARGE Condition at departure: stable. No learning barriers present. Discharge instructions provided and reviewed with the patient. Reviewed medication(s) side effects, precautions, dosing and course information. Prescription(s) given to the patient. Patient verbalized understanding. Written instructions provided in Portuguese. The patient was discharged by the physician. She was discharged home and accompanied by Friend. She left the Emergency Department ambulatory and via private vehicle. Driving (Friend). --02:23 Sheriff Diaz R.N. Locked/Released at 08/01/2016 2:23 by Sheriff Diaz R.N.
--- NOTE | 2016-08-01 02:24 | ED MED RECONCILIATION SUMMARY ---
Patient: JOSÉ MIGUEL DE LEON Medication Reconciliation Report [facility] VisitID: [id number] [address] [place] [address] 26y, F Registration Date/Time: 08/01/2016 Weight: 54.4 kg Height/Length: 67 in. BMI: 18.8 ALLERGIES: No Known Drug Allergy The patient's Home Medications are listed below: NONE. The source(s) of the original Home Medication information: Not obtained. The following Medications were given to the patient in the Emergency Department: None. The following Medications were prescribed to the patient: Vistaril 50 mg: take 1 orally every 6 hours as needed for anxiety. Dispense twenty (20). No refill. Substitution is permissible. -- Too Engle Dr.
--- NOTE | 2016-08-01 02:24 | ED MAR SUMMARY ---
..... Medication Administration Record [facility] [address] [place], [place] [id number] Patient: JOSÉ MIGUEL DE LEON Visit ID: [id number] 26y, F Weight: 54.4 kg Height/Length: 67 in BMI: 18.8 ALLERGIES: No Known Drug Allergy
--- NOTE | 2016-08-01 02:24 | ED MED RECONCILIATION SUMMARY ---
Patient: JOSÉ MIGUEL DE LEON Medication Reconciliation Report [facility] VisitID: [id number] [address] [place] [address] 26y, F Registration Date/Time: 08/01/2016 Weight: 54.4 kg Height/Length: 67 in. BMI: 18.8 ALLERGIES: No Known Drug Allergy The patient's Home Medications are listed below: NONE. The source(s) of the original Home Medication information: Not obtained. The following Medications were given to the patient in the Emergency Department: None. The following Medications were prescribed to the patient: Vistaril 50 mg: take 1 orally every 6 hours as needed for anxiety. Dispense twenty (20). No refill. Substitution is permissible. -- Too Engle Dr.
--- NOTE | 2016-08-01 02:24 | ED DISCHARGE INSTRUCTIONS ---
Patient: JOSÉ MIGUEL DE LEON General Instructions [facility] VisitID: [id number] [place] [address] 26y, F Registration Date/Time: 08/01/2016 Atypical chest pain .12 lead EKG performed. Anxiety reaction. INSTRUCTIONS Avoid stimulants (such as cigarettes, coffee, cold medicines, sinus medicines, street drugs). Prescription Medications: Vistaril 50 mg: take 1 orally every 6 hours as needed for anxiety. Dispense twenty (20). No refill. Substitution is permissible. Follow-up: Follow up with your doctor in about two days. Call for an appointment. Screening today revealed the patient's blood pressure to be in the normal range. ADDITIONAL INFORMATION Chest Pain, Noncardiac Based on your visit today, the exact cause of your chest pain is not certain. Your condition does not seem serious and your pain does not appear to be coming from your heart. However, sometimes the signs of a serious problem take more time to appear. Therefore, please watch for the warning signs listed below. Home Care: Rest today and avoid strenuous activity. Take any prescribed medicine as directed. Follow Up with your doctor or this facility as instructed or if you do not start to feel better within 24 hours. Get Prompt Medical Attention if any of the following occur: A change in the type of pain: if it feels different, becomes more severe, lasts longer, or begins to spread into your shoulder, arm, neck, jaw or back Shortness of breath or increased pain with breathing Cough with dark colored sputum (phlegm) or blood Weakness, dizziness, or fainting Fever of 100.4F (38C) or higher, or as directed by your healthcare provider Swelling, pain or redness in one leg Stress Reaction Anxiety is the feeling we all get when we think something bad might happen. It is a normal response to stress and usually causes only a mild reaction. When anxiety becomes more severe, emotions may interfere with daily life. In some cases, you may not even be aware of what it is youre anxious about! During an anxiety reaction, you may feel like you are helpless, nervous, depressed or irritable. Your body may show signs of anxiety in many ways. You may experience dry mouth, shakiness, dizziness, weakness, trouble breathing, chest pressure, headache, nausea, diarrhea, tiredness, inability to sleep or sexual problems. Home Care: 1) Try to locate the sources of stress in your life. They may not be obvious! These may include: -- Daily hassles of life which pile up (traffic jams, missed appointments, car troubles, etc.) -- Major life changes, both good (new baby, job promotion) and bad (loss of job, loss of loved one) -- Overload: feeling that you have too many responsibilities and can't take care of all of them at once -- Feeling helpless, feeling that your problems are beyond what youre able to solve 2) Notice how your body reacts to stress. Learn to listen to your body signals. This will help you take action before the stress becomes severe. 3) When you can, do something about the source of your stress. (Avoid hassles, limit the amount of change that happens in your life at one time and take a break when you feel overloaded). 4) Unfortunately, many stressful situations cannot be avoided. It is necessary to learn HOW TO MANAGE STRESS better. There are many proven methods that will reduce your anxiety. These include simple things like exercise, good nutrition and adequate rest. Also, there are certain techniques that are helpful: relaxation and breathing exercises, visualization, biofeedback and meditation. For more information about this, consult your doctor or go to a local bookstore and review the many books and tapes available on this subject. Follow Up If you feel that your anxiety is not responding to self-help measures, contact your doctor or make an appointment with a counselor. Get Prompt Medical Attention if any of the following occur: -- Your symptoms get worse -- Chest pain or trouble breathing -- Severe headache not relieved by rest and mild pain reliever -- Rapid or irregular heartbeat, fainting Hydroxyzine Pamoate Oral capsule What is this medicine? HYDROXYZINE (juan francisco DROX i zeen) is an antihistamine. This medicine is used to treat allergy symptoms. It is also used to treat anxiety and tension. This medicine can be used with other medicines to induce sleep before surgery. How should I use this medicine? Take this medicine by mouth with a full glass of water. Follow the directions on the prescription label. You may take this medicine with food or on an empty stomach. Take your medicine at regular intervals. Do not take your medicine more often than directed. Talk to your pharmacy order entry technician regarding the use of this medicine in children. Special care may be needed. While this drug may be prescribed for children as young as 6 years of age for selected conditions, precautions do apply. Patients over 65 years old may have a stronger reaction and need a smaller dose. What side effects may I notice from receiving this medicine? Side effects that you should report to your doctor or health property caretaker as soon as possible: fast or irregular heartbeat difficulty passing urine seizures slurred speech or confusion tremor Side effects that usually do not require medical attention (report to your doctor or health property caretaker if they continue or are bothersome): constipation drowsiness fatigue headache stomach upset What may interact with this medicine? alcohol barbiturate medicines for sleep or seizures medicines for colds, allergies medicines for depression, anxiety, or emotional disturbances medicines for pain medicines for sleep muscle relaxants What if I miss a dose? If you miss a dose, take it as soon as you can. If it is almost time for your next dose, take only that dose. Do not take double or extra doses. Where should I keep my medicine? Keep out of the reach of children. Store at room temperature between 15 and 30 degrees C (59 and 86 degrees F). Keep container tightly closed. Throw away any unused medicine after the expiration date. What should I tell my health care provider before I take this medicine? They need to know if you have any of these conditions: any chronic illness difficulty passing urine glaucoma heart disease kidney disease liver disease lung disease an unusual or allergic reaction to hydroxyzine, cetirizine, other medicines, foods, dyes, or preservatives or trying to get breast-feeding What should I watch for while using this medicine? Tell your doctor or health property caretaker if your symptoms do not improve. You may get drowsy or dizzy. Do not drive, use machinery, or do anything that needs mental alertness until you know how this medicine affects you. Do not stand or sit up quickly, especially if you are an older patient. This reduces the risk of dizzy or fainting spells. Alcohol may interfere with the effect of this medicine. Avoid alcoholic drinks. Your mouth may get dry. Chewing sugarless gum or sucking hard candy, and drinking plenty of water may help. Contact your doctor if the problem does not go away or is severe. This medicine may cause dry eyes and blurred vision. If you wear contact lenses you may feel some discomfort. Lubricating drops may help. See your eye doctor if the problem does not go away or is severe. If you are receiving skin tests for allergies, tell your doctor you are using this medicine. You have been given the following additional information: Chest Pain, Noncardiac Anxiety Reaction Hydroxyzine Pamoate Oral capsule (Electronically signed by Too Engle Dr. 08/01/2016 2:15)
--- NOTE | 2016-08-01 02:24 | ED MAR SUMMARY ---
..... Medication Administration Record [facility] [address] [place], [place] [id number] Patient: JOSÉ MIGUEL DE LEON Visit ID: [id number] 26y, F Weight: 54.4 kg Height/Length: 67 in BMI: 18.8 ALLERGIES: No Known Drug Allergy
--- NOTE | 2016-08-01 05:45 | DIAGNOSTIC IMAGING REPORT ---
PROCEDURE: XR CHEST 1 VIEW INDICATION: FATIGUE TECHNIQUE: Portable AP view 01:08 a.m. COMPARISON: None. FINDINGS: Lungs are clear. Heart and mediastinum are normal. Thorax is normal. IMPRESSION: 1. Negative chest.
== END 2016-08-01 02:20 | disposition home or self-care (01) ==
LOC: ED SRH 00:33
DX: R07.89 Other chest pain (principal); F41.1 Generalized anxiety disorder; F17.200 Nicotine dependence, unspecified, uncomplicated
CPT/HCPCS: 90100; 90616; 92610; 92720; 95059

== ENCOUNTER 2016-09-02 22:12 | Emergency (ER) | payer OTHER ==
--- NOTE | 2016-09-02 23:47 | ED NURSING NOTES ---
Clinical Report - Nurses [facility] [address] [place] [address] 09/02/2016 22:12 Patient: JOSÉ MIGUEL DE LEON TRIAGE Triage time 22:59 Sep 02 2016. Acuity: LEVEL 3. Chief Complaint: DIZZINESS, WEAKNESS, LIGHT HEADED and VERTIGO. 23:05 09/02/16. SEPSIS SCREEN: Sepsis Screen. Negative (no infection suspected/documented). SACHIN COMA SCORE: Sachin Coma Scale: 14- eyes open spontaneously (4); best verbal response- disoriented (4); best motor response- obeys commands (6). (doesnt know the day of the week). --23:05 Mara Saunders R.N. 22:59 09/02/16. BP: 125/68 (regular adult cuff) taken on the left arm, while sitting. HR: 110. RR: 20. O2 saturation: 100% on room air. Temp: 98.2 F (oral). Pain level now: 10/10. Additional comments: mouth, heart and chest. --23:05 Mara Saunders R.N. Weight: 53.5 kg stated. Height/Length: 67 inches Per Patient. BMI: 18.5. --22:59 Mara Saunders R.N. Medications None. --23:00 Mara Saunders R.N. Allergies No Known Drug Allergy. --23:00 Mara Suanders R.N. History Arrived by private vehicle. Historian: patient. Accompanied by friend. Primary physician (Dr Mills). This started 2 hours. ( Patient used drugs couple hours ago, she says she is hot, weak, dizzy, and anxious). 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 PAST MEDICAL HX: Last normal menstrual period was 2 weeks ago- weeks ago. SOCIAL HX: Current every day heavy tobacco smoker- 1-2 packs per day. History of heavy drug use: heroin, methamphetamines, marijuana. Recently used drugs today. No alcohol use. No infectious disease exposure. ABUSE ASSESSMENT: No report of abuse. SELF HARM ASSESSMENT: A self harm assessment was performed. The patient answered "no" to the question "Do you have thoughts of harming or killing yourself?" and "Have you recently had thoughts about harming or killing others?". --23:05 Mara Saunders R.N. PROBLEMS: Atypical Chest Pain. Substance Abuse. Anxiety Reaction. --23:00 Mara Saunders R.N. ADDITIONAL SURGERIES: no known surgeries. Interventions ID band on patient. To treatment room. --23:05 Mara Saunders R.N. PHYSICAL ASSESSMENT 23:09/02/16. Ambulatory to room. GENERAL / NEURO / PSYCH: Appears in no acute distress. Alert. Speech within normal limits. HEENT: No facial asymmetry noted. Pupils equal, round and reactive to light. RESPIRATORY: Breath sounds within normal limits. Respirations not labored. CVS: Normal sinus rhythm noted. Capillary refill less than 2 seconds. GI / : Abdomen soft and nontender. SKIN: Skin is warm. --23:05 Mara Saunders R.N. NURSING PROGRESS NOTES 23:09/02/16. The plan of care for this patient has been created. Head of bed elevated. Reassurance given. Two patient identifiers checked. Call light placed in reach. Side rails up x 1. Bed placed in lowest position. Brakes of bed on. Patient ready for evaluation- chart flagged and ED physician notified. --23:05 Mara Saunders R.N. DISPOSITION / DISCHARGE 00:29 09/03/16. Departure time: 23:46 Sep 02 2016. Condition at departure: unchanged. The patient left the Emergency Department without being seen by a physician; patient was accompanied by a formula maker. The patient appears to be alert, oriented x4, coherent and in no acute distress. The patient notified the ED staff prior to leaving the department and stated is leaving the ED due to the long waiting time. Notified the ED physician and charge nurse of patient departure. Prior to leaving the ED, she was advised to return if needed. Patient signed form prior to leaving. She left the Emergency Department ambulatory and via private vehicle. ( Patient said she wanted to go to [place] to be seen.). --00:29 Mara Saunders R.N. Locked/Released at 09/03/2016 0:29 by Mara Saunders R.N.
--- NOTE | 2016-09-02 23:47 | ED NURSING NOTES ---
Clinical Report - Nurses [address] [place] [address] 09/02/2016 22:12 Patient: JOSÉ MIGUEL DE LEON TRIAGE Triage time 22:59 Sep 02 2016. Acuity: LEVEL 3. Chief Complaint: DIZZINESS, WEAKNESS, LIGHT HEADED and VERTIGO. 23:05 09/02/16. SEPSIS SCREEN: Sepsis Screen. Negative (no infection suspected/documented). SACHIN COMA SCORE: Sachin Coma Scale: 14- eyes open spontaneously (4); best verbal response- disoriented (4); best motor response- obeys commands (6). (doesnt know the day of the week). --23:05 Mara Saunders R.N. 22:59 09/02/16. BP: 125/68 (regular adult cuff) taken on the left arm, while sitting. HR: 110. RR: 20. O2 saturation: 100% on room air. Temp: 98.2 F (oral). Pain level now: 10/10. Additional comments: mouth, heart and chest. --23:05 Mara Saunders R.N. Weight: 53.5 kg stated. Height/Length: 67 inches Per Patient. BMI: 18.5. --22:59 Mara Saunders R.N. Medications None. --23:00 Mara Saunders R.N. Allergies No Known Drug Allergy. --23:00 Mara Saunders R.N. History Arrived by private vehicle. Historian: patient. Accompanied by friend. Primary physician (Dr Mills). This started 2 hours. ( Patient used drugs couple hours ago, she says she is hot, weak, dizzy, and anxious). 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 PAST MEDICAL HX: Last normal menstrual period was 2 weeks ago- weeks ago. SOCIAL HX: Current every day heavy tobacco smoker- 1-2 packs per day. History of heavy drug use: heroin, methamphetamines, marijuana. Recently used drugs today. No alcohol use. No infectious disease exposure. ABUSE ASSESSMENT: No report of abuse. SELF HARM ASSESSMENT: A self harm assessment was performed. The patient answered "no" to the question "Do you have thoughts of harming or killing yourself?" and "Have you recently had thoughts about harming or killing others?". --23:05 Mara Saundres R.N. PROBLEMS: Atypical Chest Pain. Substance Abuse. Anxiety Reaction. --23:00 Mara Saunders R.N. ADDITIONAL SURGERIES: no known surgeries. Interventions ID band on patient. To treatment room. --23:05 Mara Saunders R.N. PHYSICAL ASSESSMENT 23:09/02/16. Ambulatory to room. GENERAL / NEURO / PSYCH: Appears in no acute distress. Alert. Speech within normal limits. HEENT: No facial asymmetry noted. Pupils equal, round and reactive to light. RESPIRATORY: Breath sounds within normal limits. Respirations not labored. CVS: Normal sinus rhythm noted. Capillary refill less than 2 seconds. GI / : Abdomen soft and nontender. SKIN: Skin is warm. --23:05 Mara Saunders R.N. NURSING PROGRESS NOTES 23:09/02/16. The plan of care for this patient has been created. Head of bed elevated. Reassurance given. Two patient identifiers checked. Call light placed in reach. Side rails up x 1. Bed placed in lowest position. Brakes of bed on. Patient ready for evaluation- chart flagged and ED physician notified. --23:05 Mara Saunders R.N. DISPOSITION / DISCHARGE 00:29 09/03/16. Departure time: 23:46 Sep 02 2016. Condition at departure: unchanged. The patient left the Emergency Department without being seen by a physician; patient was accompanied by a assistant professor of mathematics. The patient appears to be alert, oriented x4, coherent and in no acute distress. The patient notified the ED staff prior to leaving the department and stated is leaving the ED due to the long waiting time. Notified the ED physician and charge nurse of patient departure. Prior to leaving the ED, she was advised to return if needed. Patient signed form prior to leaving. She left the Emergency Department ambulatory and via private vehicle. ( Patient said she wanted to go to [place] to be seen.). --00:29 Mara Saunders R.N. Locked/Released at 09/03/2016 0:29 by Mara Saunders R.N.
--- NOTE | 2016-09-03 00:30 | ED CLINICAL REPORT ---
Clinical Report - Physicians/Mid Levels [facility] [address] [place] [address] 09/02/2016 22:12 Patient: JOSÉ MIGUEL DE LEON CLINICAL IMPRESSION LWBS. (Electronically signed by Matt Miller MD 09/02/2016 23:47)
--- NOTE | 2016-09-03 00:30 | ED CLINICAL REPORT ---
Clinical Report - Physicians/Mid Levels [facility] [address] [place] [address] 09/02/2016 22:12 Patient: JOSÉ MIGUEL DE LEON CLINICAL IMPRESSION LWBS. (Electronically signed by Matt Miller MD 09/02/2016 23:47)
--- NOTE | 2016-09-03 00:31 | ED MAR SUMMARY ---
..... Medication Administration Record [facility] [address] [place], [place] [id number] Patient: JOSÉ MIGUEL DE LEON Visit ID: [id number] 26y, F Weight: 53.5 kg Height/Length: 67 in BMI: 18.5 ALLERGIES: No Known Drug Allergy
--- NOTE | 2016-09-03 00:31 | ED DISCHARGE INSTRUCTIONS ---
Patient: JOSÉ MIGUEL DE LEON General Instructions [facility] VisitID: [id number] [address] [place] [address] 26y, F Registration Date/Time: 09/02/2016 LWBS. (Electronically signed by Matt Miller MD 09/02/2016 23:47)
--- NOTE | 2016-09-03 00:31 | ED MED RECONCILIATION SUMMARY ---
Patient: JOSÉ MIGUEL DE LEON Medication Reconciliation Report [facility] VisitID: [id number] [address] [place] [address] 26y, F Registration Date/Time: 09/02/2016 Weight: 53.5 kg Height/Length: 67 in. BMI: 18.5 ALLERGIES: No Known Drug Allergy The patient's Home Medications are listed below: NONE. The source(s) of the original Home Medication information: Not obtained. The following Medications were given to the patient in the Emergency Department: None. The following Medications were prescribed to the patient: None.
--- NOTE | 2016-09-03 00:31 | ED DISCHARGE INSTRUCTIONS ---
Patient: JOSÉ MIGUEL DE LEON General Instructions [facility] VisitID: [id number] [address] [place] [address] 26y, F Registration Date/Time: 09/02/2016 LWBS. (Electronically signed by Matt Miller MD 09/02/2016 23:47)
--- NOTE | 2016-09-03 00:31 | ED MED RECONCILIATION SUMMARY ---
Patient: JOSÉ MIGUEL DE LEON Medication Reconciliation Report [facility] VisitID: [id number] [address] [place] [place] [address] 26y, F Registration Date/Time: 09/02/2016 Weight: 53.5 kg Height/Length: 67 in. BMI: 18.5 ALLERGIES: No Known Drug Allergy The patient's Home Medications are listed below: NONE. The source(s) of the original Home Medication information: Not obtained. The following Medications were given to the patient in the Emergency Department: None. The following Medications were prescribed to the patient: None.
--- NOTE | 2016-09-03 00:31 | ED MAR SUMMARY ---
..... Medication Administration Record [facility] [address] [place], [place] [id number] Patient: JOSÉ MIGUEL DE LEON Visit ID: [id number] 26y, F Weight: 53.5 kg Height/Length: 67 in BMI: 18.5 ALLERGIES: No Known Drug Allergy
== END 2016-09-02 23:46 | disposition left against medical advice (07) ==
LOC: ED SRH 22:12
DX: Z53.21 Procedure and treatment not carried out due to patient leaving prior to being seen by health care provider (principal)